=== PATIENT | female | born 1970 | race Caucasian/White ===

== ENCOUNTER 2019-03-02 17:30 | Observation (INO) | payer OTHER ==
[~2019-03-02] VITALS: Ht 167.6 cm; Wt 89.8 kg
[2019-03-02 17:31] VITALS: BP 141/76
--- NOTE | 2019-03-02 17:46 | NUR ---
PT AMBULATED TO BED WITH DAUGHTER
[2019-03-02] MEDS ORDERED: NACL 0.9% 1,000 ML IV SCH (17:53)
--- NOTE | 2019-03-02 17:53 | NUR ---
REFERRED BY URGENT CARE. R 3RD TOE PAIN/CELLULITIS, X2 WEEKS, WORSENED WITH DISCOLORATION 5 DAYS AGO. WAS GIVEN RX KEFLEX BY PCP, WITHOUT IMPROVEMENT. PT ALSO C/O COUGH & MID CHEST PAIN, X4 HRS AFTER LEAVING WORK IN THE C[place]. ACCUCHECK 307.HX DM, , CHOLECYSTECTOMY, HERNIA REPAIR SURGERY.PATIENT STATES PAIN OF 10/10 AT THIS TIME. PATIENT POSITIONED FOR COMFORT; HOB ELEVATED; BEDRAILS UP X1; BED DOWN. ER MD MADE AWARE OF PT STATUS.
--- NOTE | 2019-03-02 18:10 | NUR ---
X RAY AT BEDSIDE.
[2019-03-02] MEDS ORDERED: VANCOMYCIN 1,000 MG in DEXTROSE 5% 250 ML IV ONE (18:15)
[2019-03-02] MEDS ORDERED: CEPH250C16 PO (18:19)
[2019-03-02] MEDS ORDERED: METF-350 PO (18:19)
[2019-03-02] MEDS ORDERED: IBUP-2213 PO (18:19)
[2019-03-02] MEDS ORDERED: VANCOMYCIN 1,000 MG VIAL ONE (18:28)
[2019-03-02] MEDS ORDERED: MORPHINE SULFATE 4 MG/ML SYR IVP PRN (18:45)
[2019-03-02] MEDS ORDERED: HYDROcodone/APAP 5/325 MG 1 TAB TAB PO PRN (18:45)
[2019-03-02] MEDS ORDERED: VANCOMYCIN PER PHARMACY MC PRN (18:45)
[2019-03-02] MEDS ORDERED: ACETAMINOPHEN 325 MG TAB PO PRN (18:45)
[2019-03-02] MEDS ORDERED: ALBUTEROL 0.083% 2.5 MG/3 ML NEBU INH PRN (18:45)
[2019-03-02] MEDS ORDERED: ZOLPIDEM 5 MG TAB PO PRN (18:45)
[2019-03-02] MEDS ORDERED: ONDANSETRON 4 MG/2 ML VIAL IVP PRN (18:45)
[2019-03-02] MEDS ORDERED: LORazepam 2 MG/ML VIAL IVP PRN (18:45)
[2019-03-02] MEDS ORDERED: DEXTROSE 50% 50 ML SYR IVP PRN (18:45)
[2019-03-02 18:51] LABS: WHITE BLOOD COUNT (AUTO) 10.4 K/uL (4.8-10.8)
[2019-03-02 18:52] LABS: EOSINOPHILS % (AUTO) 2.6 % (0.0-4.0); HEMATOCRIT 35.5 % (36-48); HEMOGLOBIN 11.6 g/dL (12.0-16.0); LYMPHOCYTES % (AUTO) 28.8 % (20.5-51.1); MEAN CORPUSCULAR HEMOGLOBIN 25 pg (27-31); MEAN CORPUSCULAR HGB CONC 33 g/dL (33-37); MEAN CORPUSCULAR VOLUME 77.3 fL (80-94); NEUTROPHILS % (AUTO) 59.6 % (42.2-75.2); PLATELET COUNT (AUTO) 312 K/uL (140-450); RED BLOOD CELL COUNT(AUTO) 4.59 MIL/uL (4.20-5.40); RED CELL DISTRIBUTION WIDTH 13.8 % (11.6-13.7)
[2019-03-02 18:53] LABS: BASOPHILS # (AUTO) 0.1 K/uL (0.00-0.22); EOSINOPHILS # (AUTO) 0.3 K/uL (0-0.4); MONOCYTES # (AUTO) 0.8 K/uL (0.8-1.0); NEUTROPHILS # (AUTO) 6.2 K/uL (1.8-7.7)
[2019-03-02 19:01] LABS: ANION GAP 15.7 (8-16); CARBON DIOXIDE 23.9 mmol/L (21-32); POTASSIUM 3.6 mmol/L (3.5-5.1)
[2019-03-02 19:02] LABS: ALBUMIN 3.7 g/dL (3.4-5.0); CREATININE 0.7 mg/dL (0.6-1.3); TOTAL BILIRUBIN 0.5 mg/dL (0.0-1.0)
[2019-03-02 19:04] LABS: PROTHROMBIN TIME 9.9 secs (10.8-13.4)
[2019-03-02 19:08] LABS: APPEARANCE,URINE SLIGHTLY CLOUDY (CLEAR); BILIRUBIN,URINE NEGATIVE (NEGATIVE); BLOOD, URINE 1+ (NEGATIVE); COLOR,URINE YELLOW (YELLOW); UGLUCOSE 3+ (NEGATIVE)
[2019-03-02 19:09] LABS: LEUKOCYTE ESTERASE ,URINE 1+ (NEGATIVE); NITRITE, URINE POSITIVE (NEGATIVE)
[2019-03-02 19:10] LABS: RBC,URINE 11-20 (MOD) /HPF (0-5); WBC,URINE >25 (MANY) /HPF (0-5)
--- NOTE | 2019-03-02 19:14 | NUR ---
Patient will be admitted to care of DR PAZ. Admited to MS. Will go to room 120B. Belongings list completed. Report to AMY BAE.
[2019-03-02 19:15] VITALS: BP 130/70
--- NOTE | 2019-03-02 19:15 | NUR ---
RECIEVED PT FROM ER / WHEEL CAHIR - AMBULATES TO BED , C/O CELLULITIS ON RIGHT 3RD TOE - BEARABLE PAIN AT THIS TIME , DENIES CHST PAIN AT THIS TIME. WEAK LOOKING BUT V/S WNL . WITH C/O CHILLS BUT AFEBRILE . ADMISSION ASSESSMENT DONE - MRSA SPECIMEN SENT TO LAB . IV SITE INTACT AND PATENT . POC DISCUSSD AND VERBALIZED UNDERSTANDING - CALL LIGHT WITHIN REACH - RMAINDS PT THE USE OF CALL LIGHT WHENVER SHE WILL GO TO BATHROOM OR ANY ASSISTANCE / HELP - WILL CONT. TO MONITOR.
[2019-03-02] MEDS: BLOOD GLUCOSE MONITORING 1 DEV DEV FS SCH (21:47)
[2019-03-02] MEDS: INSULIN LISPRO SLIDING SCALE 100 UNITS/ML VIAL SUBQ PRN (21:54)
[2019-03-03] VITALS: BP 114/72
--- NOTE | 2019-03-03 | NUR ---
MADE ROUNDS - NO S/SXS OF ACUTE DISTRESS NOTED AT THIS TIME . CALL LIGHT WITHIN REACH.
[2019-03-03 04:00] VITALS: BP 114/70
--- NOTE | 2019-03-03 04:00 | NUR ---
MADE ROUNDS . NO S/SXS OF ACUTE DISTRESS NOTED AT THIS TIME . DENIES ANY PAIN.
--- NOTE | 2019-03-03 06:00 | NUR ---
MADE ROUNDS . NO FURTHER COMPLAIN MADE - CALL LIGHT WITHIN REACH.
--- NOTE | 2019-03-03 06:50 | NUR ---
PATIENT HAS BEEN SCREENED AND CATEGORIZED LOW NUTRITION RISK. PATIENT WILL BE SEEN WITHIN 7 DAYS OF ADMISSION. 03/08/19 ALEJANDRA FRANCISCO MS, RDN Addendum: 03/03/19 at [address] Correction: PATIENT HAS BEEN SCREENED AND CATEGORIZED HIGH NUTRITION RISK. PATIENT WILL BE SEEN WITHIN 1-2 DAYS OF ADMISSION. 03/03/19-03/04/19 ALEJANDRA FRANCISCO MS, RDN
[2019-03-03] MEDS: BLOOD GLUCOSE MONITORING 1 DEV DEV FS SCH ×4 (06:55→23:35)
[2019-03-03] MEDS: INSULIN LISPRO SLIDING SCALE 100 UNITS/ML VIAL SUBQ PRN ×4 (07:06→23:38)
[2019-03-03 07:16] LABS: BASOPHILS # (AUTO) 0.1 K/uL (0.00-0.22); BASOPHILS % (AUTO) 1.2 % (0.0-2.0); EOSINOPHILS # (AUTO) 0.3 K/uL (0-0.4); EOSINOPHILS % (AUTO) 4.4 % (0.0-4.0); HEMOGLOBIN 10.5 g/dL (12.0-16.0); LYMPHOCYTES # (AUTO) 2.1 K/uL (2.5-16.5); LYMPHOCYTES % (AUTO) 35.9 % (20.5-51.1); MEAN CORPUSCULAR HEMOGLOBIN 25 pg (27-31); MEAN CORPUSCULAR HGB CONC 33 g/dL (33-37); MEAN CORPUSCULAR VOLUME 77.5 fL (80-94); MONOCYTES # (AUTO) 0.5 K/uL (0.8-1.0); MONOCYTES % (AUTO) 7.7 % (1.7-9.3); NEUTROPHILS % (AUTO) 50.8 % (42.2-75.2); PLATELET COUNT (AUTO) 242 K/uL (140-450); RED BLOOD CELL COUNT(AUTO) 4.14 MIL/uL (4.20-5.40); RED CELL DISTRIBUTION WIDTH 14.1 % (11.6-13.7)
--- NOTE | 2019-03-03 07:23 | NUR ---
ENDORSED TO AM SHIFT . DENIES PAIN FOR THE WHOLE NIGHT . IFO ENCOURAGED .
--- NOTE | 2019-03-03 07:25 | NUR ---
RECEIVED BEDSIDE REPORT FROM SYSTEM ANALYST NURSE. PT IS SLEEPING, NO S/S OF ACUTE DISTRESS, NO SOB. IV SALINE LOCK R AC 22 G. THIRD TOE ON R FOOT NOTED TO BE SLIGHTLY SWOLLEN, NO OPEN SKIN AREAS. SKIN IS INTACT. CALL LIGHT IS WITHIN REACH. FALL PRECAUTIONS IN PLACE. WILL CONTINUE TO MONITOR.
[2019-03-03 08:00] VITALS: BP 109/54
--- NOTE | 2019-03-03 10:13 | NUR ---
03/03/19 RD INITIAL ASSESSMENT COMPLETED PLEASE REFER TO NUTRITION ASSESSMENT UNDER CARE ACTIVITY FOR ESTIMATED NUTRITIONAL NEEDS. RD RECOMMENDATIONS 1. CONTINUE CCHO 60 G DIET ORDERED AND TOLERATED. IF PO INTAKE <75% ESTIMATED NEEDS BY FOLLOWING ASSESSMENT, CONSIDER ADDING ONS (GLUCERNA QD) TO DIET REGIMEN. 2.RD TO FOLLOW UP MODERATE RISK, 3-5 DAYS ROBERT DAN, RD
[2019-03-03] MEDS: VANCOMYCIN 1,250 MG in DEXTROSE 5% 250 ML IV SCH ×2 (10:37→22:00)
[2019-03-03 14:11] LABS: ANION GAP 11.4 (8-16); CARBON DIOXIDE 25.4 mmol/L (21-32); CREATININE 0.6 mg/dL (0.6-1.3); MAGNESIUM 1.6 mg/dL (1.8-2.4); POTASSIUM 3.8 mmol/L (3.5-5.1); TOTAL BILIRUBIN 0.6 mg/dL (0.0-1.0)
--- NOTE | 2019-03-03 14:55 | NUR ---
PT VISITING WITH FAMILY AT BEDSIDE. NO S/S OF DISTRESS.
--- NOTE | 2019-03-03 15:25 | NUR ---
PT SEEN BY DR JACQUES
[2019-03-03 16:00] VITALS: BP 113/68
[2019-03-03] MEDS ORDERED: LEVOFLOXACIN 500 MG/D5W PREMIX 100 ML IV SCH (16:00)
--- NOTE | 2019-03-03 16:00 | NUR ---
IV LEVAQUIN INFUSING ORDERED.
[2019-03-03] MEDS ORDERED: MAGNESIUM OXIDE 400 MG TAB PO SCH (17:00)
--- NOTE | 2019-03-03 17:33 | NUR ---
OBTAINED AN OPEN-TOE PROCARE SHOE FOR PT PER MD ORDER.
--- NOTE | 2019-03-03 19:25 | NUR ---
ENDORSED PT TO BLADE GRADER OPERATOR NURSE IN STABLE CONDITION
--- NOTE | 2019-03-03 19:27 | NUR ---
RECEIVED BEDSIDE REPORT FROM AM SHIFT NURSE. AWAKE, ALERT ORIENTED X 4, AMBULATORY, FALL RISK DUE TO CELLULITIS 3RD TOE. NO S/S OF ACUTE DISTRESS, NO SOB. IV SALINE LOCK R AC 22 G. THIRD TOE ON R FOOT MINIMAL SWELLING NOTED. NO OPEN SKIN AREAS. SKIN IS INTACT. CALL LIGHT IS WITHIN REACH. FALL PRECAUTIONS IN PLACE. WILL CONTINUE TO MONITOR.
--- NOTE | 2019-03-03 22:35 | NUR ---
PT WENT TO BATHROOM WITH STANDBY ASSIST VOIDING FREELY, ASSISTED BACK TO BED. NO COMPLAINTS AT THIS TIME
[2019-03-03 23:58] VITALS: BP 103/58
--- NOTE | 2019-03-04 02:00 | NUR ---
PATIENT IV INFILTRATED EARLIER 10 MINS AGO, TOOK OUT OLD IV, CANNULA INTACT. REINSERTED ON THE LEFT FOREARM G 20,PATENT AND INTACT WITH NS SALINE AT 10 CC/HR
--- NOTE | 2019-03-04 02:16 | NUR ---
PT SLEEPING, NO RESPIRATORY DISTRESS, NO COMPLAINTS OF PAIN. WILL CONTINUE TO MONITOR
[2019-03-04] MEDS: BLOOD GLUCOSE MONITORING 1 DEV DEV FS SCH ×2 (05:41→11:27)
--- NOTE | 2019-03-04 05:41 | NUR ---
BLOOD GLUCOSE TAKEN 240 MG, 4 UNITS GIVEN HUMALOG.
[2019-03-04] MEDS: INSULIN LISPRO SLIDING SCALE 100 UNITS/ML VIAL SUBQ PRN ×2 (06:14→11:51)
--- NOTE | 2019-03-04 07:15 | NUR ---
PT STILL SLEEPING BUT AROUSABLE TO VERBAL STIMULI, PT IN STABLE CONDITION WILL ENDORSE TO NEXT SHIFT NURSE
--- NOTE | 2019-03-04 07:20 | NUR ---
RECEIVED BEDSIDE REPORT FROM NIGHT NURSE. PATIENT IS AWAKE AND VERBALLY RESPONSIVE. IV INTACT AND PATENT TO LFA SALINE LOCK. BED IN LOW POSITION. CALL LIGHT WITHIN REACH.
[2019-03-04 08:00] VITALS: BP 116/65
--- NOTE | 2019-03-04 09:20 | NUR ---
PATIENT AMBULATED TO THE RESTROOM WITH STEADY GAIT. PT BACK IN BED. DENIES ANY PAIN OR DISCOMFORT AT THIS TIME. WILL CONTINUE TO MONITOR.
--- NOTE | 2019-03-04 10:10 | NUR ---
AWAITING FOR VANCO TROUGH RESULT. UNABLE TO START IV VANCOMYCIN NOW PER PHARMACY PROTOCOL.
[2019-03-04 10:47] LABS: BASOPHILS # (AUTO) 0.1 K/uL (0.00-0.22); BASOPHILS % (AUTO) 1.4 % (0.0-2.0); EOSINOPHILS # (AUTO) 0.3 K/uL (0-0.4); EOSINOPHILS % (AUTO) 5.1 % (0.0-4.0); HEMATOCRIT 33.4 % (36-48); HEMOGLOBIN 10.8 g/dL (12.0-16.0); LYMPHOCYTES # (AUTO) 1.8 K/uL (2.5-16.5); LYMPHOCYTES % (AUTO) 31.5 % (20.5-51.1); MEAN CORPUSCULAR HEMOGLOBIN 25 pg (27-31); MEAN CORPUSCULAR HGB CONC 32 g/dL (33-37); MEAN CORPUSCULAR VOLUME 78.2 fL (80-94); MONOCYTES # (AUTO) 0.5 K/uL (0.8-1.0); MONOCYTES % (AUTO) 9.1 % (1.7-9.3); NEUTROPHILS # (AUTO) 3.1 K/uL (1.8-7.7); NEUTROPHILS % (AUTO) 52.9 % (42.2-75.2); PLATELET COUNT (AUTO) 248 K/uL (140-450); RED BLOOD CELL COUNT(AUTO) 4.27 MIL/uL (4.20-5.40); WHITE BLOOD COUNT (AUTO) 5.8 K/uL (4.8-10.8)
[2019-03-04 11:03] LABS: ANION GAP 13.7 (8-16); CARBON DIOXIDE 23.9 mmol/L (21-32); CREATININE 0.6 mg/dL (0.6-1.3); POTASSIUM 3.6 mmol/L (3.5-5.1)
--- NOTE | 2019-03-04 11:56 | NUR ---
RECEIVED CALL FROM PHARMACY FOR VANCOMYCIN DOSAGE, VANCO TROUGH RESULT 5.4. MEDICATION TO BE STARTED. BLOOD SUGAR NOTED 228, HUMALOG COVERAGE 4 UNITS. PATIENT IS IN BED, RESTING QUIETLY WATCHING TV ON HER PHONE. NO S/S OF DISTRESS NOTED. CALL LIGHT WITHIN REACH.
--- NOTE | 2019-03-04 12:50 | NUR ---
IV VANCOMYCIN INFUSING @ 165ML/HR PER PHARMACY PROTOCOL. WILL MONITOR PATIENT.
[2019-03-04] MEDS ORDERED: VANCOMYCIN 1,000 MG in DEXTROSE 5% 250 ML IV SCH (13:00)
--- NOTE | 2019-03-04 14:50 | NUR ---
PATIENT IS ALERT AND ORIENTED X4. DENIES ANY PAIN OR DISCOMFORT. NO S/S OF DISTRESS. EDUCATED ABOUT DIABETIC FOOTCARE BY DISCUSSION. FAMILY AT BEDSIDE. CALL LIGHT WITHIN REACH.
--- NOTE | 2019-03-04 15:58 | NUR ---
DR. JACQUES AT BEDSIDE.
[2019-03-04 16:00] VITALS: BP 107/53
--- NOTE | 2019-03-04 16:30 | NUR ---
PATIENT IS PREPARING FOR DISCHARGE NOW. DISCHARGE INSTRUCTIONS PACKET AND ALL BELONGINGS GIVEN. PT WILL BE DISCHARGING TO HOME, TRANSPORT VIA PRIVATE VEHICLE WITH FAMILY. ID BANDS AND IV SITE REMOVED. BLEEDING CONTROLLED.
--- NOTE | 2019-03-07 10:52 | NUR ---
PCP Appointment: SW made appointment for patient's hospital follow up with PCP. SW arranged for appointment to be at 2:15PM on 03/12/2019 @ [address] [place] [address] Carlos Landers. SW contacted patient at [phone] and left voicemail to inform. SW will follow up as needed.
== END 2019-03-04 17:05 | disposition home or self-care (01) ==
LOC: MED 17:30 → MTU 18:48
PROVIDERS: ADMIT Internal Medicine Pulmonary Disease; ATTEND Internal Medicine Pulmonary Disease
DX: L03.031 Cellulitis of right toe (principal); E11.9 Type 2 diabetes mellitus without complications; N39.0 Urinary tract infection, site not specified; R07.9 Chest pain, unspecified; Z79.84 Long term (current) use of oral hypoglycemic drugs; Z79.899 Other long term (current) drug therapy
CPT/HCPCS: 36415; 71045; 73630; 80048; 80053; 80202; 81001; 82948; 83605; 83735; 84484; 85025; 85610; 85730; 87040; 87081; 87086; 87186; 93005; 96365; 96366; 96367; 96372; 99285; G0378; J1956; J3370; J7060; Q0092

== ENCOUNTER 2020-10-12 16:20 | Emergency (ER) | payer MEDICAID, OTHER ==
[~2020-10-12] VITALS: Ht 167.6 cm; Wt 89.8 kg
[~2020-10-12 16:20] MED LIST: CEPH250C16 PO; IBUP-2213 PO; METF-350 PO
[2020-10-12 16:25] VITALS: BP 119/65
--- NOTE | 2020-10-12 16:36 | NUR ---
patient ambulated to bed 12.
[2020-10-12] MEDS ORDERED: KETOROLAC 15 MG/ML VIAL IVP ONE (16:55)
[2020-10-12] MEDS ORDERED: NACL 0.9% 1,000 ML IV ONE (16:55)
--- NOTE | 2020-10-12 17:03 | NUR ---
HEATING AND REFRIGERATION INSPECTOR AT PT BEDSIDE.
--- NOTE | 2020-10-12 17:04 | NUR ---
20 G IV ESTABLISHED TO L AC. BLOOD SAMPLES COLLECTED VIA IV AND HANDED TO FARMWORKER POULTRY ALONG WITH URINE SAMPLE
[2020-10-12 17:21] LABS: APPEARANCE,URINE SL CLOUDY (CLEAR); BILIRUBIN,URINE NEGATIVE (NEGATIVE); BLOOD, URINE TRACE-I (NEGATIVE); COLOR,URINE YELLOW (YELLOW); LEUKOCYTE ESTERASE ,URINE 1+ (NEGATIVE); NITRITE, URINE NEGATIVE (NEGATIVE); UGLUCOSE 3+ (NEGATIVE)
[2020-10-12 17:22] LABS: BASOPHILS % (AUTO) 0.5 % (0.0-2.0); EOSINOPHILS # (AUTO) 0.1 K/uL (0-0.4); EOSINOPHILS % (AUTO) 0.9 % (0.0-4.0); HEMATOCRIT 35.5 % (36-48); HEMOGLOBIN 11.6 g/dL (12.0-16.0); LYMPHOCYTES # (AUTO) 1.5 K/uL (2.5-16.5); LYMPHOCYTES % (AUTO) 15.9 % (20.5-51.1); MEAN CORPUSCULAR HEMOGLOBIN 26 pg (27-31); MEAN CORPUSCULAR HGB CONC 33 g/dL (33-37); MEAN CORPUSCULAR VOLUME 77.8 fL (80-94); MONOCYTES # (AUTO) 1.1 K/uL (0.8-1.0); MONOCYTES % (AUTO) 11.4 % (1.7-9.3); NEUTROPHILS # (AUTO) 6.6 K/uL (1.8-7.7); NEUTROPHILS % (AUTO) 71.3 % (42.2-75.2); PLATELET COUNT (AUTO) 266 K/uL (140-450); RED BLOOD CELL COUNT(AUTO) 4.56 MIL/uL (4.20-5.40); RED CELL DISTRIBUTION WIDTH 14.1 % (11.6-13.7); WHITE BLOOD COUNT (AUTO) 9.2 K/uL (4.8-10.8)
[2020-10-12] MEDS ORDERED: ONDANSETRON 4 MG/2 ML VIAL IVP ONE (17:25)
[2020-10-12 17:33] LABS: RBC,URINE 0-5 /HPF (0-5); WBC,URINE 80-100 /HPF (0-5)
[2020-10-12 17:38] LABS: ALBUMIN 3.5 g/dL (3.4-5.0); ANION GAP 13.3 (8-16); CARBON DIOXIDE 27.4 mmol/L (21-32); CREATININE 0.8 mg/dL (0.6-1.3); POTASSIUM 3.7 mmol/L (3.5-5.1); TOTAL BILIRUBIN 0.7 mg/dL (0.0-1.0)
[2020-10-12] MEDS ORDERED: cefTRIAXone 1,000 MG VIAL ONE (17:55)
--- NOTE | 2020-10-12 18:19 | NUR ---
49 Y/O FEMALE ARRIVED COMPLAINING ABOUT BODY ACHES, LOWER ABDOMINAL PAIN, NAUSEA, GENERALIZED "ILL" FEELING X 5 DAYS. AWAKE, ALERT, NO RESP DISTRESS, ABDOMEN IS SOFT AND ROUNDED WITH ACTIVE BOWEL SOUNDS, NO TENDERNESS TO PALP. MOVES ALL EXTREMITES INDEPENDENTLY. HX OF DIABETES, EYE SURGERY 03/23 AND 05/25 ASSISTED TO [facility], PLACED IN LOW POSITION SIDE RAILS UP.
[2020-10-12] MEDS ORDERED: IBUP-2213 PO (18:27)
[2020-10-12] MEDS ORDERED: CEFP200T20 PO (18:27)
[2020-10-12] MEDS ORDERED: ONDA-24 PO (18:27)
[2020-10-12 19:14] VITALS: BP 119/65
--- NOTE | 2020-10-12 19:18 | NUR ---
Patient discharged with v/s stable. Written and verbal after care instructions given and explained. Patient alert, oriented and verbalized understanding of instructions re pyelonephritis. Ambulatory with steady gait. All questions addressed prior to discharge. ID band removed. Patient advised to follow up with PMD. Rx of cefpodoxime proxetil, ibuprofen, zofran odt given. Patient educated on indication of medication including possible reaction and side effects. Opportunity to ask questions provided and answered.
--- NOTE | 2020-10-16 17:34 | NUR ---
LATE ENTRY--- Urine culture results received from lab. Results shown to Dr. Prescott. New prescription received. for Macrobid 100mg BID X7 days. Patient called to notify about changes in new medications. Pt instructed to continue her current prescription and also start and complete the new rx being given to her. New RX called into [facility] [place] [facility]. All questions answered and concerns addressed. Pt verbalized understanding all instructions given to her. Copy placed in C&S folder.
== END 2020-10-12 19:18 | disposition home or self-care (01) ==
LOC: MED 16:20
DX: N12 Tubulo-interstitial nephritis, not specified as acute or chronic (principal); E11.9 Type 2 diabetes mellitus without complications; Z79.899 Other long term (current) drug therapy
CPT/HCPCS: 36415; 80053; 81001; 82948; 83690; 85025; 87040; 87086; 96361; 96365; 96375; 99284; J0696; J1885; J2405; J7030

== ENCOUNTER 2022-07-07 19:09 | Emergency (ER) | payer MEDICAID, OTHER ==
[~2022-07-07] VITALS: Ht 167.6 cm; Wt 84.8 kg
[~2022-07-07 19:09] MED LIST changes: +CEFP200T20 PO; +ONDA-188 PO
[2022-07-07 19:27] VITALS: BP 140/93
--- NOTE | 2022-07-07 21:05 | NUR ---
PT TAKEN TO BED 6
--- NOTE | 2022-07-07 21:09 | NUR ---
Dr. Neal examining patient.
[2022-07-07] MEDS ORDERED: GABA300C PO (21:58)
--- NOTE | 2022-07-07 22:18 | NUR ---
Patient discharged with v/s stable. Written and verbal after care instructions given and explained. Patient verbalized understanding. Ambulatory with steady gait. All questions addressed prior to discharge. Advised to follow up with PMD.
[2022-07-07 22:21] VITALS: BP 140/93
== END 2022-07-07 22:18 | disposition home or self-care (01) ==
LOC: MED 19:09
DX: R23.4 Changes in skin texture (principal); E11.42 Type 2 diabetes mellitus with diabetic polyneuropathy; I10 Essential (primary) hypertension; Z79.4 Long term (current) use of insulin; Z79.899 Other long term (current) drug therapy
CPT/HCPCS: 99282